=== PATIENT | male | born 1990 | race Caucasian/White ===

== ENCOUNTER 2016-12-31 13:18 | Emergency (ER) | payer OTHER ==
[2016-12-31 13:54] VITALS: BMI 23.3
[2016-12-31 13:56] VITALS: TEMP 98.2
--- NOTE | 2016-12-31 13:59 | ED PDOC ---
Arrival/HPI - General Chief Complaint: Male Genitourinary Time Seen by Provider: 12/31/16 13:59 Historian: Patient - History of Present Illness Narrative History of Present Illness (Text): 12/31/16 13:59 26 y/o male, no significant pmh, nkda, c/o burning urinary sensation with no itching. Burning urinary sensation, no penile discharge or testicular, symptoms started after the condomn broke after the sexual intercourse with a female, no fever or chills, no weight loss, no other medical or psychological complaints. Past Medical History - Provider Review Nursing Documentation Reviewed: Yes - Infectious Disease Hx of Infectious Diseases: None - Psychiatric Hx Substance Use: No - Anesthesia Hx Anesthesia: No Family/Social History - Physician Review Nursing Documentation Reviewed: Yes Family/Social History: Unknown Family HX Smoking Status: Never Smoked Hx Alcohol Use: Yes Frequency of alcohol use: Socially Hx Substance Use: No Allergies/Home Meds Allergies/Adverse Reactions: Allergies No Known Allergies Allergy (Verified 12/31/16 13:54) Review of Systems - Review of Systems Constitutional: absent: Fatigue, Fevers Eyes: absent: Vision Changes ENT: absent: Hearing Changes Respiratory: absent: SOB, Cough Cardiovascular: absent: Chest Pain Gastrointestinal: absent: Abdominal Pain, Nausea, Vomiting Genitourinary Male: Dysuria. absent: Frequency, Hematuria, Urinary Output Changes Musculoskeletal: absent: Arthralgias, Back Pain Skin: absent: Rash, Pruritis Physical Exam Vital Signs Reviewed: Yes Vital Signs Temp Pulse Resp BP Pulse Ox 12/31/16 13:54 98.2 F 51 L 19 159/100 H 99 Temperature: Afebrile Blood Pressure: Hypertensive Pulse: Bradycardic Respiratory Rate: Normal Appearance: Positive for: Well-Appearing, Non-Toxic, Comfortable Pain Distress: None Mental Status: Positive for: Alert and Oriented X 3 - Systems Exam Head: Present: Atraumatic, Normocephalic Pupils: Present: PERRL Extroacular Muscles: Present: EOMI Conjunctiva: Present: Normal Mouth: Present: Moist Mucous Membranes Neck: Present: Normal Range of Motion Respiratory/Chest: Present: Clear to Auscultation, Good Air Exchange. No: Respiratory Distress, Accessory Muscle Use Cardiovascular: Present: Regular Rate and Rhythm, Normal S1, S2. No: Murmurs Abdomen: Present: Normal Bowel Sounds. No: Tenderness, Distention, Peritoneal Signs Genitourinary Male: Present: Normal External Genitalia. No: Lesions, Penile Discharge, Testicle Tenderness, Penile Swelling, Hernias, Testicle Swelling Back: Present: Normal Inspection Upper Extremity: Present: Normal Inspection. No: Cyanosis, Edema Lower Extremity: Present: Normal Inspection. No: Edema Neurological: Present: GCS=15, Speech Normal, Motor Func Grossly Intact, Memory Normal Skin: Present: Warm, Dry, Normal Color. No: Rashes Psychiatric: Present: Alert, Oriented x 3, Normal Insight, Normal Concentration Medical Decision Making ED Course and Treatment: 12/31/16 13:59 -ua 12/31/16 14:26 -UA show no UTI -I am clinically concerning about gc/chlamydia which he is concern as well, rocephine and azithromycin ordered. Pt. refused HIV test -Discharge home with pyridium (this will cause urine bright red orange color), stay hydrated, use better condom in the future, notify all your sexual partners for prophylatic treatment or STD test, return to the ER for any new or worsening signs or symptoms. - Lab Interpretations Lab Results: Lab Results 12/31/16 14:18: Urine Color Yellow, Urine Appearance Clear, Urine pH 7.0, Ur Specific [place] 1.025, Urine Protein Negative, Urine Glucose (UA) Negative, Urine Ketones Negative, Urine Blood Negative, Urine Nitrate Negative, Urine Bilirubin Negative, Urine Urobilinogen 0.2, Ur Leukocyte Esterase Negative - PA / [employer] / Resident Statement MD/DO has reviewed & agrees with the documentation as recorded. Disposition/Present on Arrival - Present on Arrival Any Indicators Present on Arrival: No History of DVT/PE: No History of Uncontrolled Diabetes: No Urinary Catheter: No History of Decub. Ulcer: No History Surgical Site Infection Following: None - Disposition Have Diagnosis and Disposition been Completed?: Yes Diagnosis: Possible exposure to STD, Dysuria Disposition: HOME/ ROUTINE Disposition Time: 13:59 Patient Plan: Discharge Condition: GOOD Additional Instructions: -Discharge home with pyridium (this will cause urine bright red orange color), stay hydrated, use better condom in the future, notify all your sexual partners for prophylatic treatment or STD test, return to the ER for any new or worsening signs or symptoms. Prescriptions: Phenazopyridine [Phenazopyridine HCl] 200 mg PO TID #6 tab Referrals: Forrest Cardona MD [Staff Provider] - Follow up with primary Forms: [employer] ([place]), WORK NOTE
[2016-12-31 14:22] LABS: URINE BILIRUBIN NEGATIVE (NEGATIVE); URINE BLOOD NEGATIVE (NEGATIVE); URINE GLUCOSE (UA) NEGATIVE (NEGATIVE); URINE LEUKOCYTE ESTERASE NEGATIVE Leu/uL (NEGATIVE); URINE NITRATE NEGATIVE (NEGATIVE); URINE PROTEIN NEGATIVE mg/dL (<30 mg/dL); URINE UROBILINOGEN 0.2 E.U./dL (<1 E.U./dL)
[2016-12-31 14:23] LABS: URINE APPEARANCE CLEAR (CLEAR); URINE COLOR YELLOW (YELLOW)
[2016-12-31] MEDS ORDERED: cefTRIAXone (Rocephin) 250 mg Inj IM STA (14:24)
[2016-12-31 15:34] VITALS: BP 136/81; PULSE 68; RESP 18; O2SAT 100
== END 2016-12-31 15:34 | disposition home or self-care (01) ==
LOC: EDBD → ED 13:18
DX: R30.0 Dysuria (principal); Z04.8 Encounter for examination and observation for other specified reasons
CPT/HCPCS: 81003; 87491; 87591; 96372; 99283; J0696